=== PATIENT | female | born 1965 | race Caucasian/White ===

== ENCOUNTER → 2017-02-25 | Outpatient (REF) ==
--- NOTE | 2017-02-25 12:53 | REP ---
Lumbar spine three views AP and lateral projections: Comparisons twelfth [id number]. There are tubal ligation clips in the pelvis bilaterally. Vertebral body heights are normal. There is grade 1 anterolisthesis of L4. There is disc space narrowing at L4 of L5 and L5 S1 compatible with degenerative disc disease at these levels. No spondylolysis is identified on the views presented. Impression: L4-5 and L5 S1 degenerative disc disease. Grade 1 L4 anterolisthesis. Signed by Hardy Sethi MD 02/25/2017 12:44 P
== END ==
LOC: M SMT 12:03
PROVIDERS: ATTEND Internal Medicine
DX: Z02.71 Encounter for disability determination (principal)